=== PATIENT | female | born 1970 | race African-American/Black ===

== ENCOUNTER 2020-04-13 12:25 | Observation (INO) | payer OTHER ==
[~2020-04-13] VITALS: Ht 165.1 cm; Wt 117.9 kg
--- NOTE | ~2020-04-13 | EMS ---
[address] [address] EMS Patient Care Report Name: JOSÉ MIGUELHECTOR Stern Room #: REG REMBERTO Brown#: [id number] Admission: 04/13/20 Attend Phys: Discharge: Date of : 68 Report #: [id number] THIS REPORT FOR: //name// Report Transmitted: 04/13/2020 12:43 EMS Care Summary [place], [place]/[facility] Incident [id number] @ 04/13/2020 11:51 Incident Location [address] [place] [address] Patient HECTOR VALDEZ Female, 49 Years 1970 Patient Address [address] [address] Patient History Cardiac - Stent,Anxiety Disorder (Panic Attacks),Schizophrenia,Depression,Myocardial Infarction (ID), Patient Allergies Penicillin allergy,Hydrocodone,Other drug allergy, Patient Medications Aspirin, Isosorbide, Nitroglycerin, Plavix, Chief Complaint chest pain Disposition Transported No Lights/[place] Dispatch Reason Chest Pain (Non-Traumatic) Transported To [facility] Narrative S: 49 yo female woke up with chest pain this am. The had an ID last year and [address] [address] EMS Patient Care Report Name: HECTOR VALDEZ Room #: REG REMBERTO Brown#: [id number] Admission: 04/13/20 Attend Phys: Discharge: Date of : 68 Report #: [id number] has 2 stents. She took 3 of her own NTG without any relief. The pt says this feels like her last heart attack. Upon our arrival the pt was alert and oriented x 3, complaining of chest pain. + mild resp distress. + nausea. no vomiting. + pain down her left arm. no weakness. no dizziness. The pt denies any recent illness. O: gcs- 15, no obvious resp distress noted. ECG- SR. The pt expresses pain down her left arm. no other obvious injury or illness noted. A: chest pain P: vs, ecg, oxygen, ecg-SR, 12 lead- no the pt has very minor ST depression in V1 and V2 on one of the three 12 leads. The pt says she has some relief with the NTG. Pt transported to [facility] without any other changes. Initial Vitals @12:16P: 74,CO: 2,SpO2: 99, @12:17P: 75,CO: 1,SpO2: 99, @12:18P: 73,R: 16,BP: 104/48,Pain: 9/10,GCS: 15,CO: 0,SpO2: 100,Revised Trauma: 12, @12:00P: 105,R: 16,BP: 109/75,Pain: 9/10,GCS: 15,Glucose: 120,CO: 3,SpO2: 99,Revised Trauma: 12, @12:14P: 72,BP: 120/70,CO: 1,SpO2: 100, @12:04P: 72,SpO2: 100, Assessments @12:05MENTAL:No Abnormalities,SKIN:No Abnormalities,HEENT:Head/Face: PALOMO,Eyes: No Abnormalities,Neck/Airway: No Abnormalities,LUNG SOUNDS:General: Nausea,ABDOMEN:General: Nausea,PELVIS//GI:No Abnormalities,EXTREMITIES:Left Arm: PALOMO,Right Arm: No Abnormalities,Left Leg: No Abnormalities,PULSE:NEURO:No Abnormalities, Impression Chest Pain / Discomfort Procedures @11:57ALS AssessmentResponse: UnchangedSucceeded@12:0412-Lead ECGResponse: UnchangedSucceeded@12:1712-Lead ECGResponse: UnchangedSucceeded@12:1612-Lead ECGResponse: UnchangedSucceeded@12:02Oxygen FlowRate: 4 Device: Nasal Cannula (NC) Response: UnchangedSucceeded@12:05Aspirin - 324 Milligrams (mg) - OralResponse: Unchanged@12:10Zofran - 0.4 Milligrams (mg) - OralResponse: Improved@12:15Nitrostat - 0.4 Milligrams (mg) - SublingualResponse: Improved Timeline 11:50,Call Received 11:50,Dispatch Notified 11:51,Dispatched 11:51,En Route 11:55,On Scene [address] [address] EMS Patient Care Report Name: HECTOR VALDEZ Room #: REG REMBERTO Brown#: [id number] Admission: 04/13/20 Attend Phys: Discharge: Date of : 68 Report #: [id number] 11:57,At Patient 11:57,ALS Assessment,Response: UnchangedSucceeded, 12:00,BP: 109/75 M,PULSE: 105,RR: 16 R,SPO2: 99 Ox,ETCO2: ,B,PAIN: 9,GCS: 15, 12:02,Oxygen FlowRate: 4 Device: Nasal Cannula (NC) Response: UnchangedSucceeded, 12:04,12-Lead ECG,Response: UnchangedSucceeded, 12:04,BP: / M,PULSE: 72,RR: R,SPO2: 100 Ox,ETCO2: ,BG: ,PAIN: ,GCS: , 12:05,Aspirin - 324 Milligrams (mg) - Oral,Response: Unchanged 12:10,Zofran - 0.4 Milligrams (mg) - Oral,Response: Improved 12:10,Depart Scene 12:14,BP: 120/70 M,PULSE: 72,RR: R,SPO2: 100 Ox,ETCO2: ,BG: ,PAIN: ,GCS: , 12:15,Nitrostat - 0.4 Milligrams (mg) - Sublingual,Response: Improved 12:16,12-Lead ECG,Response: UnchangedSucceeded, 12:16,BP: / M,PULSE: 74,RR: R,SPO2: 99 Ox,ETCO2: ,BG: ,PAIN: ,GCS: , 12:17,12-Lead ECG,Response: UnchangedSucceeded, 12:17,BP: / M,PULSE: 75,RR: R,SPO2: 99 Ox,ETCO2: ,BG: ,PAIN: ,GCS: , 12:18,BP: 104/48 M,PULSE: 73,RR: 16 R,SPO2: 100 Ox,ETCO2: ,BG: ,PAIN: 9,GCS: 15, 12:21,At Destination 13:01,Call Closed Disclaimer v1.1 Copyright 2020 [employer] This EMS Care Summary contains data elements from the applicable legal record (which may be displayed differently). It is designed to provide pertinent information for the following purposes: continuity of care, clinical quality, and state data reporting. The complete legal record is available to ED staff and administrators of the receiving hospital in [employer]'s Patient Tracker. All data is provided "as is."
--- NOTE | ~2020-04-13 | EKG ---
[facility] [place] [address] ELECTROCARDIOGRAM REPORT Name: HECTOR VALDEZ Room #: 208-P ADM IN M.R.#: [id number] Admission: 04/13/20 Attend Phys: Chaya Medina Discharge: Date of : 68 Report #: [id number] THIS REPORT FOR: cc: Cammie Serrano K. 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
[~2020-04-13 12:25] MED LIST: ABILIFY MAINTE400 MG IM; CLONAZEPAM 1 MG1 M1 PO; FERRO-TIME325 MG PO; HYDROCODON-ACE1 EAC4 PO; HYDROXYZINE HCL50 MG PO; LASIX 20 MG TAB20 MG PO; LATUDA; PERCOCET 10-321 EACH PO; VIIBRYD40 MG PO; WELLBUTRIN SR150 M1 PO; ZYPREXA20 MG PO
[2020-04-13 12:26] VITALS: BP 127/65
--- NOTE | 2020-04-13 13:19 | EKG ---
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 : 1970 Requested By: Joann Brian Order Number: [id number] MD: Blake Adam Measurements Intervals [place] Rate: 71 P: 21 WV: 113 QRS: 8 QRSD: 102 T: 10 QT: 413 QTc: 449 Interpretive Statements Sinus rhythm Borderline short [place] interval Borderline T abnormalities, diffuse leads Compared to ECG 09/26/2000 13:27:22 T-wave abnormality now present Electronically Signed On 04-13-2020 13:19:29 CDT by Blake Adam [email or web address] <ELECTRONICALLY SIGNED> By: Blake Adam MD, [facility] 04/13/20 1319 D: 09/1235 1236 Blake Adam MD, FACC /EPI
[2020-04-13 13:40] LABS: HEMATOCRIT 32.2 % (37.0-47.0); HEMOGLOBIN 9.5 gm/dL (12.0-15.0); MCH 19.8 pg (26.0-34.0); MCHC 29.3 g/dL (28.0-37.0); MCV 67.5 fL (80.0-100.0); PLATELET COUNT 228 thou/uL (150-400); RBC 4.78 mil/uL (4.20-5.00); RDW 21.9 % (10.5-14.5); WBC 7.4 thou/uL (4.0-11.0)
[2020-04-13 13:41] LABS: ANION GAP 7 mmol/L (7-16); BUN 6 mg/dL (7-18); CALCIUM 9.2 mg/dL (8.5-10.1); CHLORIDE 107 mmol/L (98-107); CO2 26 mmol/L (21-32); CREATININE 0.6 mg/dL (0.6-1.0); GLUCOSE 117 mg/dL (74-106); POTASSIUM 4.3 mmol/L (3.5-5.1); SODIUM 140 mmol/L (136-145)
[2020-04-13 13:51] LABS: ALBUMIN 3.2 g/dL (3.4-5.0); SGOT 11 U/L (15-37); SGPT 26 U/L (30-65); TOTAL BILIRUBIN 0.2 mg/dL (0.2-1.0); TOTAL PROTEIN 7.1 g/dL (6.4-8.2); TROPONIN-I <0.06 ng/mL (<0.06)
[2020-04-13 14:15] LABS: ABSOLUTE NEUTROPHILS 3.7 thou/uL (1.4-8.2); ANISOCYTOSIS 1+; MICROCYTES 2+; PLATELET ESTIMATE NORMAL
[2020-04-13 16:20] VITALS: BP 103/64
[2020-04-13 16:36] LABS: CHOLESTEROL 173 mg/dL (<200); HDL CHOLESTEROL 102 mg/dL (>40); LDL CHOLESTEROL 65 mg/dL (<100); TC:HDL 1.7 Ratio (Not establshd); TRIGLYCERIDE 31 mg/dL (<150); VLDL 6 mg/dL (<40)
[2020-04-13 16:45] VITALS: BP 104/65
--- NOTE | 2020-04-13 18:43 | NUR ---
PT ADMITED FROM ER. ADMISSION HX AND ASSESSMENT COMPLETED. PT ORIENTED TO THE ROOM AND THE CALL SYSTEM. ORDERS NOTED. WILL CONTINTIUE TO MONITOR.
[2020-04-13 20:03] VITALS: BP 109/74
[2020-04-13] MEDS ORDERED: PERCOCET 10-321 EAC1 PO (20:14)
[2020-04-13] MEDS ORDERED: DESYREL150 MG PO (20:16)
[2020-04-13] MEDS ORDERED: LEXAPRO20 MG PO (20:28)
[2020-04-13] MEDS ORDERED: PLAVIX 75 MG TA75 M1 PO (20:29)
[2020-04-13] MEDS ORDERED: VIMPAT150 MG PO (20:30)
[2020-04-13] MEDS ORDERED: VISTARIL50 MG PO (20:31)
[2020-04-13] MEDS ORDERED: GABAPENTIN600 M1 PO (20:32)
[2020-04-13] MEDS ORDERED: ISOSORBIDE MONO30 M1 PO (20:33)
[2020-04-13] MEDS ORDERED: RANEXA1000 MG PO (20:34)
--- NOTE | 2020-04-13 22:00 | NUR ---
PT C/O CHEST PAIN AT 8/10 ADN RADIATES TO LEFT ARM.PT DECSRIBED PAIN CONSTANT AND SHARP.NITRO AVAILABLE BUT PT DECLINED IT STATING IT DROPS HER BLOOD PRESSURE.SBP 95.DATA REVIEWER NOTIFIED.ORDERS GIVEN.DR FRANK WAS CONSULTED,ORDERS RECEIVED SEE MAR AND ORDERS.GI COCKTAIL WAS GIVEN W/O RELIEF.MORPHINE HELP PARTIALLY PER PATIENT.NO OTHER CONCERNS VOICED AT THIS TIME.WILL CONT TO MONITOR PER POC.
[2020-04-14 00:30] VITALS: BP 92/56
[2020-04-14 04:48] VITALS: BP 106/61
[2020-04-14 07:44] VITALS: BP 95/47
[2020-04-14 11:26] VITALS: BP 86/43
--- NOTE | 2020-04-14 13:53 | 2DMMODE ---
[facility] [place] [address] 2 D/M-MODE ECHOCARDIOGRAM Name: HECTOR VALDEZ Room #: 208-P ADM IN M.R.#: [id number] Admission: 04/13/20 Attend Phys: Chaya Medina Discharge: Date of : 68 Report #: [id number] THIS REPORT FOR: cc: Cammie Serrano K. Steven DO Mancuso, Gerald M. MD [facility] ~ APPROVED REPORT Study performed: 04/14/2020 09:06:23 EXAM: Comprehensive 2D, Doppler, and color-flow Echocardiogram Patient Location: Bedside Room #: 208 Status: on-call BSA: 2.15 HR: 52 bpm BP: 95/47 mmHg Rhythm: NSR Other Information Study Quality: Good Indications Chest Pain Hx: Cardiac stent, tobacco, obesity. 2D Dimensions RVDd: 35.66 mm IVSd: 11.06 (7-11mm) LVOT Diam: 21.06 (18-24mm) LVDd: 53.71 mm PWd: 11.23 (7-11mm) Ascending Ao: 39.54 (22-36mm) LVDs: 37.20 (25-40mm) Aortic Root: 34.91 mm Volumes Left Atrial Volume (Systole) Single Plane 4CH: 69.69 mL Single Plane 2CH: 76.81 mL LA ESV Index: 35.00 mL/m2 Aortic Valve AoV Peak Davidson.: 1.55 m/s AO Peak Gr.: 9.60 mmHg LVOT Max P.20 mmHg LVOT Max V: 1.14 m/s JULIANO Vmax: 2.56 cm2 [facility] [address] [place] [address] 2 D/M-MODE ECHOCARDIOGRAM Name: HECTOR VALDEZ Room #: 208-P [facility] IN [facility]#: [id number] Admission: 04/13/20 Attend Phys: Chaya Dick Discharge: Date of : 68 Report #: [id number] Mitral Valve E/A Ratio: 1.4 MV Decel. Time: 162.83 ms MV E Max Davidson.: 1.01 m/s MV A Davidson.: 0.72 m/s MV PHT: 47.22 ms IVRT: 96.89 ms Pulmonary Valve PV Peak Davidson.: 0.95 m/s PV Peak Gr.: 3.61 mmHg Pulmonary Vein P Vein S: 0.51 m/s P Vein A: 0.28 m/s P Vein D: 0.43 m/s P Vein A Dur.: 129.2 msec P Vein S/D Ratio: 1.19 Tricuspid Valve TR Peak Davidson.: 2.19 m/s RAP Estimate: 5.00 mmHg TR Peak Gr.: 19.14 mmHg PA Pressure: 24.00 mmHg Left Ventricle The left ventricle is normal size. There is normal LV segmental wall motion. There is normal left ventricular wall thickness. The left ventricular systolic function is normal. LVEF is 55-60%. The left ventricular diastolic function is normal. Right Ventricle The right ventricle is normal size. The right ventricular systolic function is normal. Atria The left atrium size is normal. The right atrium size is normal. Aortic Valve The aortic valve is normal in structure. No aortic regurgitation is present. There is no aortic valvular stenosis. Mitral Valve The mitral valve is normal in structure. There is no mitral valve regurgitation noted. No evidence of mitral valve stenosis. Tricuspid Valve The tricuspid valve is normal in structure. Trace tricuspid [facility] [address] [address] 2 D/M-MODE ECHOCARDIOGRAM Name: HECTOR VALDEZ Room #: 208-P [facility] IN ..#: [id number] Admission: 04/13/20 Attend Phys: Chaya Dick Discharge: Date of : 68 Report #: [id number] regurgitation. Estimated PAP is 25mmHg. Pulmonic Valve The pulmonary valve is normal in structure. Trace pulmonic regurgitation. Great Vessels The aortic root is normal in size. The ascending aorta is mildly dilated. IVC is normal in size and collapses >50% with inspiration. Pericardium There is no pericardial effusion. <Conclusion> The left ventricle is normal size. The left ventricle is normal size. LVEF is 55-60%. The left ventricular diastolic function is normal. The right ventricle is normal size. The left atrium size is normal. The aortic valve is normal in structure. There is no mitral valve regurgitation noted. Trace tricuspid regurgitation. Estimated PAP is 25mmHg. Trace pulmonic regurgitation. There is no pericardial effusion. <ELECTRONICALLY SIGNED> By: Leonard Trevino MD, FACC 04/14/20 1352 1352 1352 Leonard Trevino MD, FACC /INF
[2020-04-14 16:22] VITALS: BP 101/36
--- NOTE | 2020-04-14 18:03 | NUR ---
PT ALERT AND ORIENTED. HAD INTERMITTENT CHEST PAIN. SEEN BY DR. FRANK. NEW ORDERS NOTED. HAD LOW BP THIS SHIFT. DR SCHMIDT CONSULTED.
[2020-04-14 19:42] VITALS: BP 100/56
--- NOTE | 2020-04-15 03:52 | NUR ---
ASSESSMENT DOCUMENTED.PT CONTINUES TO C/O CHEST PAIN THAT IS RELIEVED BY PAIN MEDS.VSS.SA ON MONITOR.DENIES ANY OTHER CONCERNS.POC IS TO HAVE PSYCHE SEES HER AND PLAN FOR STRESS TEST ON THURSDAY.WILL CONT TO MONITOR PER POC.
[2020-04-15 04:13] VITALS: BP 98/51
[2020-04-15 07:43] VITALS: BP 106/72
[2020-04-15 11:15] VITALS: BP 100/53
--- NOTE | 2020-04-15 15:11 | NUR ---
PT ALERT AND ORIENTED. VSS. PRN PAIN MED GIVEN WITH PARTIAL RELIEF. NPO AFTER MIDNIGHT FOR NUC STRESS TEST IN AM. SB/SA ON TELE. NO CARDIAC DISTRESS NOTED.
[2020-04-15 16:28] VITALS: BP 103/64
--- NOTE | 2020-04-15 16:33 | EKG ---
[facility] [place] [address] ELECTROCARDIOGRAM REPORT Name: JOSÉ MIGUELHECTOR A Room #: 208- ADM IN M.R.#: [id number] Admission: 04/13/20 Attend Phys: Chaya Medina Discharge: Date of : 68 Report #: [id number] THIS REPORT FOR: cc: Cammie Serrano K. Steven DO Lundgren, Craig H. 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 : 1970 Requested By: Chaya Medina Order Number: [id number] MD: Rancho Trevino Measurements Intervals [place] Rate: 50 P: 12 NV: 118 QRS: 6 QRSD: 104 T: -10 QT: 461 QTc: 421 Interpretive Statements Sinus bradycardia Atrial premature complex Borderline short [place] interval Nonspecific ST and T wave abnormality Compared to ECG 04/13/2020 12:36:05 Atrial premature complex(es) now present Electronically Signed On 04-15-2020 16:33:28 CDT by Rancho Trevino [email or web address] <ELECTRONICALLY SIGNED> By: Rancho Trevino MD, [facility] 04/15/20 1633 06 180 Rancho Trevino MD, FAC /EPI
--- NOTE | 2020-04-15 16:40 | EKG ---
[facility] [place] [address] ELECTROCARDIOGRAM REPORT Name: KARY VALDEZGLEN Stern Room #: 208- ADM IN M.R.#: [id number] Admission: 04/13/20 Attend Phys: Chaya Medina Discharge: Date of : 68 Report #: [id number] THIS REPORT FOR: cc: Cammie Serrano K. Steven DO Lundgren, Craig H. 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 : 1970 Requested By: Leonard Trevino Order Number: [id number] MD: Rancho Trevino Measurements Intervals [place] Rate: 56 P: 52 [place]: 139 QRS: 15 QRSD: 102 T: -7 QT: 438 QTc: 423 Interpretive Statements Sinus bradycardia Borderline T abnormalities, diffuse leads Compared to ECG 04/13/2020 18:07:55 No significant change was found Electronically Signed On 04-15-2020 16:40:16 CDT by Rancho Trevino [email or web address] <ELECTRONICALLY SIGNED> By: Rancho Trevino MD, [facility] 04/15/20 1640 0746 Rancho Trevino MD, [facility] /EPI
[2020-04-15 19:52] VITALS: BP 99/64
[2020-04-16 00:25] VITALS: BP 96/45
--- NOTE | 2020-04-16 03:34 | NUR ---
TRAMADOL GIVEN FOR PAIN,PATIENT SLEPT.NPO SINCE MIDNIGHT FOR A POSSIBLE STRESS TEST TODAY.MONITOR SHOWS SINUS ARRHYTHMIA.POC CONTINUED.
[2020-04-16 04:30] VITALS: BP 114/62
[2020-04-16 08:00] VITALS: BP 96/54
[2020-04-16 12:06] VITALS: BP 103/69
--- NOTE | 2020-04-16 16:24 | NUR ---
ASSESSMENT CHARTED - MEDS PER MAR - NO CO'S OF PAIN OR NAUSEA. PT HAS BEEN NPO FOR NUC STRESS TEST TODAY. UP AD LUCIO IN ROOM. PT HAVING TEST AT THE PRESENT TIME.
[2020-04-16 17:00] VITALS: BP 144/86
[2020-04-16 17:39] VITALS: BP 144/86
[2020-04-16] MEDS ORDERED: VIIBRYD40 MG PO (18:03)
[2020-04-16] MEDS ORDERED: VIMPAT150 MG PO (18:03)
[2020-04-16] MEDS ORDERED: CLONAZEPAM 1 MG1 M1 PO (18:03)
[2020-04-16] MEDS ORDERED: ISOSORBIDE MONO30 M1 PO (18:03)
[2020-04-16] MEDS ORDERED: VISTARIL50 MG PO (18:03)
[2020-04-16] MEDS ORDERED: DESYREL150 MG PO (18:03)
[2020-04-16] MEDS ORDERED: RANEXA1000 MG PO (18:03)
[2020-04-16] MEDS ORDERED: GABAPENTIN600 M1 PO (18:03)
[2020-04-16] MEDS ORDERED: PLAVIX 75 MG TA75 M1 PO (18:03)
[2020-04-16] MEDS ORDERED: LEXAPRO20 MG PO (18:03)
[2020-04-16] MEDS ORDERED: PERCOCET 10-321 EAC1 PO (18:03)
--- NOTE | 2020-04-16 18:36 | NUR ---
PT HOME POST STRESS TEST - INSTRUCTION RE HOME MEDS/ CARE AND FOLLOW UP GIVEN TO PATIENT. LEFT UNIT AMBULATORY - HOME VIA CAB - PT STATED UNDERSTANDING ON INSTRUCTION GIVEN. CAB VOUCHER SUPPLIED TO PATIENT.
== END 2020-04-16 18:30 | disposition home or self-care (01) ==
LOC: ER 12:25 → 2N 15:28 → EROBS 15:28 → 2N 17:47
PROVIDERS: Physician Assistant; ADMIT Hospitalist; ATTEND Hospitalist
DX: R07.89 Other chest pain (principal); I25.10 Atherosclerotic heart disease of native coronary artery without angina pectoris; F25.9 Schizoaffective disorder, unspecified; I10 Essential (primary) hypertension; E78.5 Hyperlipidemia, unspecified; F41.9 Anxiety disorder, unspecified; M54.9 Dorsalgia, unspecified; G89.29 Other chronic pain; E66.01 Morbid (severe) obesity due to excess calories; Z87.891 Personal history of nicotine dependence; Z79.899 Other long term (current) drug therapy; E78.00 Pure hypercholesterolemia, unspecified; Z79.82 Long term (current) use of aspirin; Z79.01 Long term (current) use of anticoagulants; Z68.41 Body mass index [BMI] 40.0-44.9, adult; Z95.818 Presence of other cardiac implants and grafts
CPT/HCPCS: 10081